=== PATIENT | male | born 1995 | race Caucasian/White ===

== ENCOUNTER 2022-03-02 09:55 | Emergency (ER) | payer SELFPAY ==
[2022-03-02] MEDS ORDERED: Boostrix 0.5 ML (Tdap) VIAL (>/=7 yrs of age) ONE (11:42)
== END 2022-03-02 12:15 | disposition home or self-care (01) ==
LOC: ERS 09:55
DX: S80.851A Superficial foreign body, right lower leg, initial encounter (principal); S80.811A Abrasion, right lower leg, initial encounter; F17.290 Nicotine dependence, other tobacco product, uncomplicated; Z23 Encounter for immunization; W45.0XXA Nail entering through skin, initial encounter
CPT/HCPCS: 90471; 90715